=== PATIENT | female | born 1950 | race Caucasian/White ===

== ENCOUNTER → 2016-08-01 | Outpatient (CLI) | payer MEDICARE, OTHER ==
[~2016-08-01] MED LIST: CIPRO500 MG PO; CRESTOR40 MG PO; EFFEXOR XR75 MG PO; TYLENOL325 MG PO
== END | disposition disaster alternative care site (69) ==
LOC: GBCOE 09:17
DX: Z12.31 Encounter for screening mammogram for malignant neoplasm of breast (principal)
CPT/HCPCS: G0202